=== PATIENT | male | born 1985 | race Two or more races ===

== ENCOUNTER 2017-07-11 00:55 | Emergency (ER) | payer OTHER | END 2017-07-11 01:33 | disposition other institution (70) | LOC: ED 00:55 | DX: Z02.89 Encounter for other administrative examinations (principal) ==

== ENCOUNTER 2017-07-11 00:55 | Emergency (ER) | payer SELFPAY ==
[2017-07-11 01:33] VITALS: BP 140/96
== END 2017-07-11 01:33 | disposition other institution (70) ==
LOC: ED 00:55
DX: S51.812A Laceration without foreign body of left forearm, initial encounter (principal); W22.09XA Striking against other stationary object, initial encounter; Y93.89 Activity, other specified; Y92.89 Other specified places as the place of occurrence of the external cause; Y99.8 Other external cause status